=== PATIENT | male | born 1980 | race Caucasian/White ===

== ENCOUNTER 2024-03-29 14:34 | Emergency (ER) | payer OTHER, SELFPAY ==
[2024-03-29 14:55] VITALS: BP 128/79; PULSE 78; RESP 18; TEMP 37.3; O2SAT 98; BMI 25.1
[2024-03-29 15:56] LABS: Appearance Urine Cloudy (Clear); Bilirubin Urine Negative (Negative); Blood Urine 2+ (Negative); Color Urine Yellow (Yellow); Glucose Urine Negative (Negative); Ketones Urine Negative (Negative); Leukocyte Esterase Urine Negative (Negative); Nitrite Urine Negative (Negative); Protein Urine Negative (Negative); Specific Gravity Urine 1.015 (1.000-1.030); Urobilinogen Urine 0.2 (0.2-1.0); pH Urine 8.5 (5.0-8.5)
[2024-03-29 16:26] LABS: Bacteria Urine Moderate; Squamous Epithelial Cell Urine Few (None-Few)
--- NOTE | 2024-03-29 16:38 | CRLHL7_ITS ---
For Patients: As a result of the Century Cures Act, medical imaging exams and procedure reports are released immediately into your electronic medical record. You may view this report before your referring provider. If you have questions, please contact your health care provider. Indication: Left-sided back pain, hematuria Technique: Volumetric multidetector CT images of the abdomen and pelvis were without the administration of intravenous contrast. Comparison: CT abdomen and pelvis March 18, 2020 Findings: The lung bases are clear. The liver is normal in attenuation without intrahepatic biliary ductal dilatation. The gallbladder is unremarkable without evidence of radiopaque calculus. There is no significant common biliary ductal dilatation or abrupt cut off. The spleen is normal in attenuation and size. The stomach and duodenum are grossly unremarkable. The pancreas is normal in attenuation without significant atrophy. The adrenal glands are unremarkable. There is left-sided hydronephrosis with demonstration of a 5.7 millimeter calculus just at the ureteropelvic junction. No evidence of distal hydronephrosis or additional calculi. There is a mild amount of stool seen throughout the colon. There is mild distal colonic diverticulosis. The appendix is unremarkable. There is no significant mesenteric, retroperitoneal, or pelvic sidewall lymph nodes. The aorta is nonaneurysmal. There is no significant atherosclerotic disease appreciated. The solid pelvic viscera are grossly unremarkable. There is no free fluid or free air. There is a small fat containing umbilical hernia. The lumbar vertebral body heights are grossly maintained in satisfactory alignment without evidence of displaced fracture, lytic or blastic lesion. Impression: Left-sided hydronephrosis with demonstration of a 5.7 millimeter calculus in the proximal left ureter just at the ureteropelvic junction. Please note that all CT scans at this facility use dose modulation, iterative reconstruction, and/or weight-based dosing when appropriate to reduce radiation dose to as low as reasonably achievable. Dictated by Bebeto Bowers MD @ 03/29/2024 5:31:27 PM (Electronically Signed)
[2024-03-29 16:46] VITALS: BP 133/82; PULSE 74; RESP 16; O2SAT 99
--- NOTE | 2024-03-29 17:04 | ED_ITS ---
HPI - Back Pain/Injury General Date Seen: 03/29/24 Chief Complaint: Back Injury/Pain Stated Complaint: Upper L back pain Time Seen by Provider: 03/29/24 16:45 Source: patient Mode of arrival: ambulatory Limitations: no limitations History of Present Illness HPI Narrative: Patient is a 43-year-old male presenting to the emergency department for left flank pain. He states the pain started around 11:00 and occurred suddenly. States it was a dull pain to his left upper flank. Pain is was 6/10 in nature but states his fully resolved about 45 minutes prior them to me seen him and his ED room. States when he is having the symptoms it made him leave work he was nauseated. Is having some mild lightheadedness at the time but denies chest pain, shortness of breath, abdominal pain, diarrhea, constipation, hematuria, dysuria. Does state a few weeks ago his urine appeared brown in color but that resolved. States he has had kidney stones before but his previous 1 was 4 years ago and is says was excruciating pain. Does not remember any injuries to his back or any recent heavy lifting. States the pain started suddenly while at work. No other concerns noted. Related Data Home Medications ?Medication ?Instructions ?Recorded ?Confirmed sertraline 50 mg tablet 50 mg PO DAILY 07/03/23 03/29/24 Previous Rx's ?Medication ?Instructions ?Recorded tamsulosin 0.4 mg capsule 0.4 mg PO DAILY #20 caps 03/29/24 Allergies Allergy/AdvReac Type Severity Reaction Status Date / Time No Known Drug Allergies Allergy Unverified 07/18/23 08:50 Review of Systems Status of ROS: Reports: 10 or more systems reviewed and unremarkable except as noted in History and below [facility] Surgical History H/O sinus surgery ?Z98.890 - Other specified postprocedural states (ICD-10) S/P hernia repair ?Z98.890 - Other specified postprocedural states (ICD-10) ?Z87.19 - Personal history of other diseases of the digestive system (ICD-10) Social History Smoking Status: Never smoker Do you use any of these nicotine containing products: None How often do you have a drink containing alcohol: never How often do you have six or more drinks on one occasion: Never AUDIT-C Alcohol total score: 0 Non-prescribed substance use: denies use Exam Narrative: Exam Narrative: Const: Well-nourished, Well-developed, in no distress Eyes: PERRL, no conjunctival injection, and symmetrical lids HENT: Atraumatic external nose and ears. Moist mucous membranes. Neck: Symmetric, trachea midline, No thyromegaly. CVS: RRR, No murmurs or gallops. Peripheral pulses 2+ and equal in all extremities RESP: Unlabored respiratory effort. Clear to auscultation bilaterally. GI: Nontender/Nondistended, No rebound or guarding. Mild left CVA tenderness MSK:Extremities w/o deformity, Normal Active ROM Skin: Warm, Dry. No rashes or lesions. Neuro: Normal Muscle tone, No focal neurological deficits. Psych: Awake, Alert, & Oriented x3. Appropriate mood and affect. Const: Vital Signs, click to edit/add: Vital Signs - 24 hr 03/29/24 14:55 03/29/24 16:46 Temperature 99.2 F Pulse Rate [Pulse Oximeter] 78 74 Respiratory Rate 18 16 [facility] 128/79 133/82 Pulse Oximetry 98 99 Oxygen Delivery Me thod Room Air Room Air Course Vital Signs Vital signs: Initial Vital Signs Temperature 99.2 F 03/29/24 14:55 Temperature Source Temporal Artery Scan 03/29/24 14:55 Pulse Rate 78 03/29/24 14:55 Respiratory Rate 18 03/29/24 14:55 Blood Pressure 128/79 03/29/24 14:55 Blood Pressure Mean 95 03/29/24 14:55 Blood Pressure Position Sitting 03/29/24 14:55 Pulse Oximetry 98 03/29/24 14:55 Oxygen Delivery Method Room Air 03/29/24 14:55 Vital Signs Temperature 99.2 F 03/29/24 14:55 Pulse Rate 78 03/29/24 14:55 Respiratory Rate 18 03/29/24 14:55 Blood Pressure 128/79 03/29/24 14:55 Pulse Oximetry 98 03/29/24 14:55 Oxygen Delivery Method Room Air 03/29/24 14:55 Temperature 99.2 F 03/29/24 14:55 Pulse Rate 74 03/29/24 16:46 Respiratory Rate 16 03/29/24 16:46 Blood Pressure 133/82 03/29/24 16:46 Pulse Oximetry 99 03/29/24 16:46 Oxygen Delivery Method Room Air 03/29/24 16:46 Medications Administered Medications: Generic Name Dose Route Start Last Admin Trade Name Christie PRN Reason Stop Dose Admin Tamsulosin HCl 0.4 mg 03/30/24 09:00 03/29/24 19:54 Tamsulosin Hcl 0.4 Mg Capsule PO 0.4 mg DAILY RAMOS Administration MDM - Back Pain/Injury MDM Narrative Medical decision making narrative: Patient's if 43 a male presenting for left flank pain. Currently asymptomatic. Based on his history and concern for kidney stone so I will order a CT scan. Will also do some basic lab work and a urinalysis. Urinalysis does show blood in the urine. I am not sure why he had discolored urine a couple weeks ago but seems to have fully resolved at this time. I am not concerned for your like aneurysm causing the symptoms considering his otherwise stable appearance in low risk factors. Could also be musculoskeletal in nature. CT scan was done showing a left-sided hydronephrosis and 5.7 mm stone consistent with his symptoms. CBC and CMP were ordered. CBC within normal limits. CMP was greatly delayed due to lab error but eventually results returned showing normal kidney function no other abnormalities. He is asymptomatic here in the emergency department this time. I informed to follow-up with a urologist which he states he has seen in the past for previous kidney stone. States he will call himself. No other concerns noted. Patient will be discharged at this time with Toradol and Zofran through [facility] and tamsulosin to his pharmacy. Junaid soria is agreeable to this plan Lab Data Labs: Lab Results 03/29/24 03/29/24 03/29/24 Range/Units 15:50 17:59 18:09 WBC Cancelled 11.17 H Corrected WBC Cancelled RBC Cancelled 5.07 Hgb Cancelled 15.3 Hct Cancelled 45.8 MCV Cancelled 90 MCH Cancelled 30 MCHC Cancelled 33 RDW Coeff of Len Cancelled 11.8 Plt Count Cancelled 288 Neut % (Auto) Cancelled 86.3 H Lymph % (Auto) Cancelled 8.8 L [place] % (Auto) Cancelled 4.4 Eos % (Auto) Cancelled 0.2 Baso % (Auto) Cancelled 0.2 Neut # (Auto) Cancelled 9.60 H Lymph # (Auto) Cancelled 1.00 [place] # (Auto) Cancelled 0.50 Eos # (Auto) Cancelled 0.00 Baso # (Auto) Cancelled 0.00 Abs Immat Gran (auto) Cancelled 0.00 Imm/Tot Granulo (auto) Cancelled 0.1 Sodium Cancelled 139 Potassium Cancelled 3.8 Chloride Cancelled 105 Carbon Dioxide Cancelled 23 Anion Gap Cancelled 11 BUN Cancelled 16 Creatinine Cancelled 1.0 Estimated Creat Clear Cancelled 92.15 Estimated GFR Cancelled 96 Glucose Cancelled 101 Calcium Cancelled 9.9 Total Bilirubin Cancelled 1.0 AST Cancelled 34 ALT Cancelled 20 Alkaline Phosphatase Cancelled 76 Total Protein Cancelled 8.5 H Albumin Cancelled 5.1 H Urine Color Yellow (Yellow) Urine Appearance Cloudy A (Clear) Urine pH 8.5 (5.0-8.5) Ur Specific [place] 1.015 (1.000-1.030) Urine Protein Negative (Negative) Urine Glucose (UA) Negative (Negative) Urine Ketones Negative (Negative) Urine Blood 2+ A (Negative) Urine Nitrite Negative (Negative) Urine Bilirubin Negative (Negative) Urine Urobilinogen 0.2 (0.2-1.0) Ur Leukocyte Esterase Negative (Negative) Urine RBC 2-5 A (0-2) Urine WBC 2-5 (0-5) Ur Squamous Epith Cells Few (None-Few) Urine Bacteria Moderate A (None) Imaging Data CT scan abdomen and pelvis: Attestation: I have reviewed the pertinent imaging results. Radiologist's impression: Left-sided hydronephrosis with demonstration of a 5.7 millimeter calculus in the proximal left ureter just at the ureteropelvic junction. Please note that all CT scans at this facility use dose modulation, iterative reconstruction, and/or weight-based dosing when appropriate to reduce radiation dose to as low as reasonably achievable. Dictated by Bebeto Bowers MD @ 03/29/2024 5:31:27 PM Discharge Plan Discharge Clinical Impression: Kidney stone on left side Patient Disposition: Home, Self-Care Condition: Stable Instructions: Kidney Stones (ED) Additional Instructions: You have a kidney stone that may not be able to pass on its own due to his size. I recommend following up with a urologist. Take tamsulosin until you passed the stone. Use Toradol for pain. When using Toradol do not use other NSAIDs as they are the same class of drugs. I also gave you Zofran in case you get na useated. Prescriptions: New tamsulosin 0.4 mg capsule 0.4 mg PO DAILY Qty: 20 1RF No Action sertraline 50 mg tablet 50 mg PO DAILY Follow Up/Referrals: Sofya Calabrese MD [Primary Care Provider] - Stand Alone Forms: [facility] Info Instructions
[2024-03-29 19:02] LABS: Basophils Percent Auto 0.2 % (0.0-3.0); Eosinophils Percent Auto 0.2 % (0.0-7.0); Hematocrit 45.8 % (37.0-53.0); Hemoglobin* 15.3 gm/dL (13.5-17.5); Immature Granulocytes Pct Auto 0.1 %; Lymphocytes Percent Auto 8.8 % (20-44); Mean Corpuscular HGB Conc 33 gm/dL (32-36); Mean Corpuscular Hemoglobin 30 pg (26-34); Mean Corpuscular Volume 90 fL (80-100); Monocytes Percent Auto 4.4 % (0.0-11.0); Neutrophils Percent Auto 86.3 % (42.0-72.0); Platelet Count* 288 K/uL (140-440); RDW Coefficient of Variation % 11.8 % (11.5-15.5); Red Blood Count 5.07 m/uL (4.30-5.90); Slide Review Reflex No; White Blood Count* 11.17 K/uL (4.50-11.00)
[2024-03-29] MEDS: TAMSULOSIN HCL 0.4 MG CAPSULE PO (19:54)
[2024-03-29 20:03] LABS: Albumin* 5.1 g/dL (3.3-5.0); Chloride* 105 mmol/L (96-114)
[2024-03-29 20:04] LABS: Potassium* 3.8 mmol/L (3.6-5.1); Sodium* 139 mmol/L (135-149)
[2024-03-29 20:06] LABS: Alanine Aminotransferase* 20 U/L (4-50); Alkaline Phosphatase* 76 U/L (40-150); Anion Gap 11 mEq/L (7-15); Aspartate Amino Transferase* 34 U/L (12-35); Blood Urea Nitrogen* 16 mg/dL (5-24); Carbon Dioxide* 23 mmol/L (20-32); Est. Creatinine Clearance* 92.15; Estimated Glomerular Filt Rate 96 ml/min; Glucose* 101 mg/dL (60-115); Total Protein* 8.5 g/dL (6.0-8.3)
[2024-03-29 20:07] LABS: Calcium* 9.9 mg/dL (8.4-10.6)
== END 2024-03-29 20:30 | disposition home or self-care (01) ==
PROVIDERS: Emergency Provider Student in an Organized Health Care Education/Training Program; PCP Family Medicine
DX: N20.0 Calculus of kidney (principal)
CPT/HCPCS: 36415; 74176; 80053; 81001; 85025; 87086; 99283; 99284; A9270

== ENCOUNTER 2024-12-24 14:49 | Outpatient (CLI) | payer OTHER, SELFPAY ==
--- NOTE | 2024-12-24 15:00 | CRLHL7_ITS ---
For Patients: As a result of the Century Cures Act, medical imaging exams and procedure reports are released immediately into your electronic medical record. You may view this report before your referring provider. If you have questions, please contact your health care provider. CLINICAL HISTORY: Follow-up left hydronephrosis COMPARISON: CT 08/18/2024 TECHNIQUE: James scale and color Doppler images were acquired of the kidneys and urinary bladder. FINDINGS: Resolution of the previously noted left-sided hydronephrosis. Punctate stone right kidney lower pole measures 3 millimeters. The right kidney measures 10.9cm in length and the left kidney measures 11.2cm in length. The renal cortex appears of normal thickness. The urinary bladder appears normal. Color Doppler images reveal a normal appearance of both ureteral jets. There is no evidence of bladder calculi or diverticula. Prevoid bladder volume 86 cc. Postvoid bladder volume 0 cc. IMPRESSION: Resolution of the previously noted left-sided hydronephrosis. Punctate 3 millimeter nonobstructing stone lower pole right kidney. Dictated by Martir Flores MD @ 12/24/2024 4:14:37 PM (Electronically Signed)
--- OUTSIDE RECORDS SUMMARY | 2024-12-25 00:31 | XMS_ITS | Clinical Summary ---
Author Organization [facility] Address [address] [place] [address] Care Team Providers Care Senior Investment Manager Name Role Phone Sofya Calabrese MD Primary Care Provider Allergies Active Allergy Reactions Criticality Noted Date Comments Cats (Fur, Dander, Saliva) *Unknown Dog Dander *Unknown 09/21/2020 Pollen Extracts *Unknown 09/21/2020 Tree And Shrub Pollen *Unknown 09/21/2020 Medications fluticasone (50 mcg per actuation) nasal solution (FLONASE) Inhale 2 Sprays into both nostrils once daily. 1 Bottle 02/28/2020 Active LORazepam (ATIVAN) 0.5 mg tabIndications: Anxiety,Insomni a, idiopathic Take 1 Tablet (0.5 mg) by mouth every 6 hours if needed for Anxiety. 10 Tablet 07/09/2023 Active sertraline (ZOLOFT) 25 mg tabletIndicatio ns:Anxiety Take 1 Tablet (25 mg) by mouth once daily in the morning. 100 Tablet 3 07/26/2024 Active tamsulosin (Flomax) 0.4 mg capsuleIndicati ons:Left ureteral stone Take 1 Capsule (0.4 mg) by mouth once daily after a meal. 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 Kessler Dysplastic nevi 05/10/2022 Overview (05/10/2022): 05/08/22: Back; Junctional nevus with severe atypia - excision scheduled 06/12/22 [place] Allergic rhinitis 11/16/2020 Irritable bowel syndrome with constipation 01/28 Myopia 06/17/2013 Nuclear cataract, nonsenile 06/17/2013 Amblyopia 04/15/2013 Overview (01/24/2021): Epic Allergic rhinitis due to animal dander 1 Nasal polyposis 12/06/2010 Overview (01/24/2021): Overview: Wheezing KYLAH (obstructive sleep apnea) Immunizations Immunization Administration Dates Next Due Anthrax Vaccine 09/04/2003,11/20/2002,10/21/2002 COVID-19 vaccine ([employer] 30mcg/0.3mL) 12YO+ BIVALENT PF, MDV 05/06/2022 COVID-19 vaccine ([employer] 30mcg/0.3mL) PF, MDV 06/11/2021 Hepatitis A (Adult) 09/04/2003,09/30/2002 Hepatitis B (Adult) 05/03/2006,09/04/2003,2002 Inactivated Polio Vaccine 02/03/2002 Influenza Virus, Unspecified 05/01/2018,06/10/20 03 Influenza, IIV3 (Age >=3 years) 03/26/2012 Influenza, IIV4 05/06/2022,,06/12/2020,03/09,03/11/2014,04/26/2013 Influenza, IIV4 (=>6mos) MDV 04/26/2013 MMR, Unspecified 02/03/2002 Meningococcal Vaccine (Menomune) 02/03/2002 Smallpox (Vaccinia) Live [id number] 10/11/2002 Td (Age >=7 Years) 02/03/2002 Tdap 01/06/2017,10/28/2011 Typhoid, Unspecified 09/30/2002 Social History Tobacco Use Types Packs/Day Years Used Date Smoking Tobacco: Former Cigarettes Q uit: 2008 Smokeless Tobacco: Never Tobacco Cessation:Counseling Given: Yes Alcohol Use Standard Drinks/Week Comments Not Currently 0 (1 standard drink = 0.6 oz pur e alcohol) socially on occ PHQ-2 Answer Date Recorded PHQ-2 TOTAL SCORE 0 07/26/2024 Social Connections Answer Date Recorded Do you often feel lonely or isolated from those around you? 0 05/31/2024 Financial Resource Strain Answer Date R ecorded Difficulty of Paying Living Expenses 3 05/31/2024 Difficulty of Paying Living Expenses Not on file 05/31/2024 Food Insecurity Answer Date Recorded Do you worry your food will run out before you are able to buy more? 1 05/31/2024 Transportation Needs Answer Date Record ed Does lack of transportation keep you from medica l appointments? 1 05/31/2024 Does lack of transportation keep you from work, meetings or getting things that you need? 1 05/31/2024 Housing Stability Answer Date Recorded What is your housing situation today? 1 05/31/2024 Interpersonal Safety Answer Date Record ed Are you being hit, kicked, p ushed or yelled at (see row info)? No 08/18/2024 Interpersonal Safety Abuse 12 - 18 Not on file 08/18/2024 Interpersonal Safety Ambulatory Vulnerability No t on file 08/18/2024 Utilities Answer Date Recorded Do you have trouble paying f or utilities (for example, heat, electricity, water, phone)? 1 05/31/2024 Sex and Gender Information Value Date Recorded Sex Assigned at Not on file Legal Sex Male 12:15 PM CDT Gender Identity Not on file Sexual Orientation Not on file Obstetrics History Last Filed Vital Signs Vital Sign Reading Time Taken Comments Blood Pressure 132/77 08/20/2024 7:07 AM DISTRICT CLAIMS MANAGER Pulse 76 08/20/2024 7:07 AM DISTRICT CLAIMS MANAGER Temperature 36.8 C (98.3 F) 08/20/2024 7:07 AM DISTRICT CLAIMS MANAGER Respiratory Rate 18 08/18/2024 11:44 AM DISTRICT CLAIMS MANAGER Oxygen Saturation 100% 08/20/2024 7:07 AM DISTRICT CLAIMS MANAGER Inhaled Oxygen Concentration - - Weight 78.2 kg (172 lb 6.4 oz) 08/20/2024 7:07 A M DISTRICT CLAIMS MANAGER Height 172.7 cm (5' 8) 08/20/2024 7:07 AM DISTRICT CLAIMS MANAGER Body Mass Index 26.21 08/20/2024 7:07 AM DISTRICT CLAIMS MANAGER Plan of Treatment Health Maintenance Due Date Last Done Comments HIV for age 15-65 1995 Hepatitis C screening for age 18-79 1998 COVID-19 vaccine series ( season) 2024 05/06/2022, 06/11/2021, 10/27/2020, Additional history exists Influenza Vaccine (Season Ended) 2025 05/06/2022, 05/02/2021, 06/12/2020, Additional history exists Depression screening for age 12+ 07/26/2025 07/26/2024, 05/08/2022, 05/06/2022, Additional history exists Lipids for age 35-44 08/11/2025 08/11/2020 BMI (ht and wt on same day) for age 18+ 08/20/2025 08/20/2024, 05/06/2022, 06/11/2021, Additional history exists Tetanus booster 01/06/2027 01/06/2017, 09/30, 02/03/2002 Hepatitis B series for 19+ Completed 05/03, 09/04/2003, 09/30/2002 Tdap Completed 01/06/2017, 10/28/2011 Pneumococcal series for age 6-49 Aged Out No longer eligible based on patient's age to complete this topic Procedures Procedure Name Priority Date/Time Associated Diagnosis Comments LIPID PANEL W REFLEX MEASURED LDL Routine 08/11/2020 8:45 AM DISTRICT CLAIMS MANAGER Screening for lipid disorders from Last 3 Months or Most Recently Relevant to Health Maintenance Results * (ABNORMAL) LIPID PANEL W REFLEX MEASURED LDL (08/11/2020 8:45 AM DISTRICT CLAIMS MANAGER) CHOLESTEROL,TOTAL 167 100 - 199 mg/dL 08/11/2020 3:11 PM DISTRICT CLAIMS MANAGER [facility] TRIGLYCERIDES 159(H) <150 mg/dL 08/11/2020 3:11 PM DISTRICT CLAIMS MANAGER [facility] HDL CHOLESTEROL 42 >40 mg/dL 02/12/202 1 3:11 PM DISTRICT CLAIMS MANAGER [facility] NON-HDL CHOLESTEROL 125 <145 mg/dl 08/11/2020 3:11 PM DISTRICT CLAIMS MANAGER [facility] CHOL/HDL RATIO 3.98 <4.50 08/11/2020 3:11 PM DISTRICT CLAIMS MANAGER [facility] LDL CHOLESTEROL 93 <=130 mg/dL 08/11/2020 3:11 PM DISTRICT CLAIMS MANAGER [facility] PROVIDER ORDERED STATUS RANDOM 08/11/2020 3:11 PM DISTRICT CLAIMS MANAGER [facility] Blood BLOOD SPECIMEN / Unknown Venipuncture / Unknown 08/11/2020 8:45 AM DISTRICT CLAIMS MANAGER 08/11/2020 8:46 AM DISTRICT CLAIMS MANAGER us Fiona HAZEL CHEMISTRY Final [facility]u lt [facility] [address] [place] [address], from Last 3 Months or Most Recently Relevant to Health Maintenance Insurance [place] [id number] [place] [id number] Care Teams Senior Investment Manager Relationship Specialty Start Date End Date Sofya Calabrese MD [address] [place] [address] [address] PCP - General Family Practice 02/21/20
--- OUTSIDE RECORDS SUMMARY | 2024-12-25 00:31 | XMS_ITS | Encounter Summary ---
Author Organization [facility] Address [address] [place] [address] Care Team Providers Care Rubber Goods Tester Water Name Role Phone Alvarado Gilbert MD Primary Care Provider [phone] Encounter Details Date Type Department Care Team (Late st Contact Info) Description 03/11/2014 Correspondence None No Primary/Referring, Phy MEDICAL EQUIPMENT PROOF OF DELIVERY Social History Tobacco Use Types Packs/Day Years Used Date Smoking Tobacco: Former Smokeless Tobacco: Never Alcohol Use Standard Drinks/Week Comments Yes 3.3 (1 standard drink = 0.6 oz p ure alcohol) social Sex and Gender Information Value Date Recorded Sex Assigned at Not on file Legal Sex Male 11:02 AM CDT Gender Identity Not on file Sexual Orientation Not on file 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
--- OUTSIDE RECORDS SUMMARY | 2024-12-25 00:31 | XMS_ITS | Encounter Summary ---
Author Organization [facility] Address [address] [place] [address] Care Team Providers Care Medical Manager Name Role Phone Alvarado Gilbert MD Primary Care Provider [phone] Encounter Details Date Type Department Care Team (Latest Contact Info) Description 05/20/2013 Consent for Procedure/Treatme nt [facility] [address] [facility] 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
--- OUTSIDE RECORDS SUMMARY | 2024-12-25 00:31 | XMS_ITS | Clinical Summary ---
Author Organization Formerly [facility] Address [address] [place] [address] Care Team Providers Care Disc Inspector Name Role Phone Alvarado Gilbert MD Primary Care Provider [phone] Source Comments You are receiving this document as you are listed as the primary care provider,follow-up provider, or the patient has been referred to you for consultation.This is in compliance with the Medicare and[facility] Cent[facility] EHR Incentive Program,which states Providers who transition their patient to another setting of careor provider of care or refers their patient to another provider of care shouldprovide summary care record for each transition of care or referral. [facility] Allergies Active Allergy Reactions Criticality Noted Date Comments Cats Claw (Uncaria Tomentosa) Other, see comments 04/29/2013 Cats, dogs, birds, pollen Itchy eyes and congestion Medications Psyllium (METAMUCIL OR) Activ e fluticasone (AKA FLONASE) 50 MCG/ACT nasal solutionIndicat ions:Allergic rhinitis Apply or instill 2 Sprays into both nostrils daily. 48 g 3 5 Active Multiple Vitamins-Iron (MULTIVITAMINS- IRON) tablet Take 1 Tablet by mouth. Active methylPREDNISol one (MEDROL 21 TABLET DOSEPACK) 4 MG tabletIndicatio ns:Numbness of left foot Follow package directions 21 Tablet 0 Active Additional Information Patient not taking.Reported on 01/12/2020 LORazepam (ATIVAN) 0.5 MG tablet Take 0.5 mg by mouth. 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 Name: RAFA VAZQUEZ Acc #: [id number] Pt. 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 Allergic rhinitis 12/06/2010 Nasal polyposis 12/06/2010 Overview (03/04/2019): Overview: Immunizations Immunization Administration Dates Next Due Fluzone Qiv Multidose Vial 0.25 (6-35 Mos) 04/26 Influenza IIV4 (Quadrivalent) 0.5mL (68832) 02/28,03/11/2014,04/26/2013 Influenza, Unspecified Formulation 05/01/2018 Tdap 01/06/2017,10/28/2011 Family History Medical History Relation Name Comments Diabetes, Type II Mother Hypertension Mother Inflammatory Bowel Disease Mother Inflammatory Bowel Disease Brother 2 C rohns disease Diabetes, Type II Maternal Aunt Diabetes, Type II Maternal Grandfather Amblyopia/Strabismus Negative Family History Cataract Negative Family History Coronary Artery Disease Negative Family History Glaucoma Negative Family History Kidney Disorder Negative Family History Relation Name Status Comments Father Alive Mother Alive Brother 1 Alive Brother 2 Maternal Aunt Maternal Grandfather Alive Maternal Grandmother Alive Paternal Grandfather Paternal Grandmother Sister Alive Social History Tobacco Use Types Packs/Day Years Used Date Smoking Tobacco: Former Cigarettes 0.5 13 0 02/28/1995 - 02/29/2008 Smokeless Tobacco: Never Alcohol Use Standard Drinks/Week Comments Yes 0 (1 standard drink = 0.6 oz pur e alcohol) 6-8 a week PHQ-2 Answer Date Recorded PHQ-2 Score 1 03/09/2019 Sex and Gender Information Value Date Recorded Sex Assigned at Not on file Legal Sex Male 11:02 AM CDT Gender Identity Not on file Sexual Orientation Not on file 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 on file Not on file Not on file Last Filed Vital Signs Vital Sign Reading Time Taken Comments Blood Pressure 112/85 02/02/2020 2:47 PM CDT Pulse 84 02/02/2020 2:47 PM CDT Temperature 36.8 C (98.3 F) 01/12/2020 2:24 PM CDT Respiratory Rate 16 06/21/2019 10:55 AM EXERCISE INSTRUCTOR Oxygen Saturation 100% 06/03/2019 5:23 PM EXERCISE INSTRUCTOR Inhaled Oxygen Concentration - - Weight 77.6 kg (171 lb) 02/02/2020 2:47 PM CDT Height 172.7 cm (5' 8) 06/03/2019 5:23 PM EXERCISE INSTRUCTOR Body Mass Index 26 06/03/2019 5:23 PM EXERCISE INSTRUCTOR Plan of Treatment Health Maintenance Due Date Last Done Comments Hep C Screening (Preventive Services) 1980 Adult Preventive Visit 05/15/2020 8, 01/16/2017, 04/23/2013 Cholesterol 05/15/2023 05/15/2018, 06/08/2013 COVID-19 Vaccine ( season) 2024 05/06/2022, 06/11/2021, 10/27/2020, Additional history exists Influenza Vaccine (Season Ended) 2025 05/06/2022, 05/02/2021, 06/12/2020, Additional history exists DTaP/Tdap/Td Vaccine (3 - Tdap) 01/06/2027 01/06/2017, 10/28/2011 Zoster/Shingles Vaccine (1 of 2) 2030 IPV (Polio) Vaccine Aged Out 02/03/2002 No longe r eligible based on patient's age to complete this topic MCV4 Vaccine Aged Out 02/03/2002 No longer eligi ble based on patient's age to complete this topic HepA Vaccine Aged Out 09/04/2003, 09/30/2002 No lo nger eligible based on patient's age to complete this topic HIV Screening (Preventive Services) Completed 11/28/2014, 06/08/2013 HPV Vaccine Aged Out No longer eligi ble based on patient's age to complete this topic Hib Vaccine Aged Out No longer eligi ble based on patient's age to complete this topic Meningococcal B Vaccine Aged Out No l onger eligible based on patient's age to complete this topic Pneumococcal Vaccine Aged Out No long er eligible based on patient's age to complete this topic Procedures Procedure Name Priority Date/Time Associated Diagnosis Comments LIPID PANEL & DIRECT LDL (IF NEEDED) Routine 05/15/2018 9:52 AM EXERCISE INSTRUCTOR Preventative health care HIV ANTIBODY Routine 11/28/2014 2:23 PM CDT Screen for STD (sexually transmitted disease) from Last 3 Months or Most Recently Relevant to Health Maintenance Results * (ABNORMAL) Lipid Panel and Direct LDL(If Needed) (05/15/2018 9:52 AM EXERCISE INSTRUCTOR) Hours Fasting 12 hours [facility] Cholesterol 178 0 - 199 mg/dl [facility] Triglyceride 159(H) 0 - 149 mg/dl [facility] HDL 45 >40 mg/dl [facility] LDL, Calc. 101 0 - 129 mg/dl [facility] Non HDL Chol, Calc 133 0 - 159 mg/dl [facility] 05/15/2018 9:52 AM EXERCISE INSTRUCTOR 05/15/2018 9:53 AM EXERCISE INSTRUCTOR Narrative [facility] - 05/15/2018 4:18 PM EXERCISE INSTRUCTOR Performed at [facility], [address] [place] [id number] [place] Alvarado Gilbert MD LAB_1 Final Result [facility] [phone] * HIV 1/2 Antibody (11/28/2014 2:23 PM CDT) HIV 1/2 Antibody Negative (Non Reactive) [facility] Comment: HIV Antibody testing may be falsely negative during the window period. If the patient has had recent exposure (within the past four weeks), consider contacting Infectious Diseases for clarification. 11/28/2014 2:23 PM CDT 11/28/2014 2:27 PM CDT Narrative [facility] - 11/29/2014 1:53 PM CDT Performed at [facility], [address] [place] [address] us Adriel Diez MD LAB_1 Final Res [facility] [phone] from Last 3 Months or Most Recently Relevant to Health Maintenance Insurance [facility] Care Teams Disc Inspector Relationship Specialty Start Date End Date Alvarado Gilbert MD [address] [address] PCP - General Family Practice 10/08/13
--- OUTSIDE RECORDS SUMMARY | 2024-12-25 00:31 | XMS_ITS | Clinical Summary ---
Author Organization [facility] Address [address] [facility] [place] [address] Care Team Providers Care Cable Swager Name Role Phone No Ref-Primary, Physician Primary Care Provider Allergies Active Allergy Reactions Criticality Noted Date Comments Cats 09/21/2020 Cats Claw (Uncaria Tomentosa) 04/29/2013 *Cats, dogs, birds, pollen Itchy eyes and congestion Dog Epithelium (Canis Lupus Familiaris) 09/21/2020 Dust Mites 11/21/2010 Mold 09/07/2024 Pollen Extract 09/21/2020 Trees 09/21/2020 Medications fluticasone (FLONASE) 50 MCG/ACT nasal spray [place] 1 spray into both nostrils daily. Active LORazepam (ATIVAN) 0.5 MG tablet Take 0.5 mg by mouth every 6 hours as needed for anxiety. Active sertraline (ZOLOFT) 25 MG tablet Take 25 mg by mouth daily. Active tamsulosin (FLOMAX) 0.4 MG capsule Take 0.4 mg by mouth daily. Active acetaminophen (TYLENOL) 500 MG tablet Take 500 mg by mouth every 6 hours as needed for mild pain. Active HYDROcodone-acetami nophen (NORCO) 5-325 MG tabletIndications:U reteral stone with hydronephrosis Take 1-2 tablets by mouth every 4 hours as needed for moderate to severe pain. 15 tablet 5 Active ondansetron (ZOFRAN ODT) 4 MG ODT tabIndications:Uret eral stone with hydronephrosis Take 1 tablet (4 mg) by mouth every 8 hours as needed for nausea. 4 tablet 5 Active Social History Tobacco Use Types Packs/Day Years Used Date Smoking Tobacco: Former Cigarettes Q uit: 2008 Smokeless Tobacco: Never Tobacco Cessation:Counseling Given: Not Answered Alcohol Use Standard Drinks/Week Comments Not Currently 0 (1 standard drink = 0.6 oz pur e alcohol) Interpersonal Safety Answer Date Record ed Do you feel physically and e motionally safe where you currently live? Yes 09/13/2024 Within the past 12 months, h ave you been hit, slapped, kicked or otherwise physically hurt by someone? No 09/13/2024 Within the past 12 months, h ave you been humiliated or emotionally abused in other ways by your partner or ex-partner? 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 Gender Identity Not on file Sexual Orientation Not on file Last Filed Vital Signs Vital Sign Reading Time Taken Comments Blood Pressure 124/83 09/13/2024 10:40 AM CDT Pulse 71 09/13/2024 10:00 AM CDT Temperature 36 C (96.8 F) 09/13/2024 10:00 AM CDT Respiratory Rate 16 09/13/2024 10:4 0 AM CDT Oxygen Saturation 100% 09/13/2024 10: 40 AM CDT Inhaled Oxygen Concentration - - Weight 76.6 kg (168 lb 14.4 oz) 09/13/2024 6:23 AM CDT Height 172.7 cm (5' 8) 09/13/2024 6:23 AM CDT Body Mass Index 25.68 09/13/2024 6:23 AM CDT Plan of Treatment Health Maintenance Due Date Last Done Comments ADVANCE CARE PLANNING 1980 ANNUAL REVIEW OF HM ORDERS 1980 DIABETES SCREENING 1980 YEARLY PREVENTIVE VISIT 04/23/2014 04/23/2013, 10/27 LIPID 2020 COVID-19 VACCINE ( season) 2024 05/06/2022, 06/11/2021, 10/27/2020, Additional history exists PHQ-2 (once per calendar year) 2024 INFLUENZA VACCINE (Season Ended) 2025 05/06/2022, 05/02/2021, 06/12/2020, Additional history exists DTAP/TDAP/TD VACCINE (4 - Td or Tdap) 01/06/2027 01/06/2017, 10/28/2011, 02/03/2002 ZOSTER VACCINE (1 of 2) 2030 MENINGITIS VACCINE Aged Out 02/03/2002 No longer eligible based on patient's age to complete this topic HEPATITIS B VACCINE Completed 05/03/2006, 09/04/2003, 09/30/2002 HEPATITIS C SCREENING Completed 07/31/2012 HIV SCREENING Completed 11/28/2014, 07/31/2012 HPV VACCINE Aged Out No longer eligi ble based on patient's age to complete this topic PNEUMOCOCCAL VACCINE: PEDIATRICS (0 to 5 YEARS) AND AT-RISK PATIENTS (6 to 49 YEARS) Aged Out No longer eligible based on patient's age to complete this topic Goals Goal Patient Goal Type Associated Problems Recent Progress Patient-Stated? Author MYC ECC SURG ENROLL Care Plan MyC ECC SURG ENROLL No [employer] Implanted Type Area Community Service Officer Coordinator Device Identifier Shelf Expiration Date Model / Serial / Lot Stent Ureteral Polaris Ultra [id number] - [id number] Implanted:Qty : 1 on 09/13/2024 by Nathaniel Krause MD at [facility] Stent Left: Urethra [employer] [id number] 07/23/2027 [id number] Explanted Type Area Community Service Officer Coordinator Device Identifier Shelf Expiration Date Model / Serial / Lot Uterteral Stent Explanted:Qty: 1 on 09/13/2024 by Nathaniel Krause MD at [facility] Stent Left: Urethra Additional Health Concerns Active Problems Noted Date Diagnosed Date MyC ECC SURG ENROLL 09/07/[address] [place] [address] [facility] Cable Swager Relationship Specialty Start Date End Date No Ref-Primary, Physician PCP - General 09/06/24
--- OUTSIDE RECORDS SUMMARY | 2024-12-25 00:31 | XMS_ITS | Data Portability ---
Author Organization [place] [facility] Address [address] [place] [address] Care Team Providers Care Pick Up Man Name Role Phone JOSE DUMONT Primary Care Provider Assessment Encounter Date Assessment Date Assessment LastModified by Organization Details LastModified Time 03/22/2020 03/22/2020 39 Y/O MALE, LEFT FLANK PAIN, 6MM LEFT PROXIMAL STONE. PAIN HAS IMPROVED. KUB STONE NOW IN KIDNEY. DISCUSSED OPTIONS. PLAN HE WILL DECIDE ON LEFT ESWL IN NEAR FUTURE. Not available 03/22/2020 16:45:50 Plan of Treatment Reminders Order Date Submit Date Provider Last Modified By Organization Details Last Modified Time Details Appointments None recorded. Lab urinalysis , dipstick 2019 020 [email or web address] Not available 0 16:00:10 Referral None recorded. Procedures None recorded. Surgeries None recorded. Imaging US, renal - Please call pt to schedule. Needed JOYCE. Thank you 2024 025 [facility], [address] [place], [address], 5 17:16:07 CT, abdomen + pelvis, w/o contrast - no prev 2024 025 [facility] , [place], [address], 5 17:55:55 Medication Orders None recorded. Patient TargetsNo targets recorded. Patient Instructions Encounter Date Encounter Id Patient Instructions Last Modified By Organization Details Last Modified Time 03/22/2020 [id number] ESWL DISCUSSED PROCEDURE Not available 03/22/2020 16:46:01 08/03/2024 [id number] Rafa and I suspect either a persistent (going on 4 months) left ureteral stone, a new stone, or something else contributing to both his pain / GH. We discussed GH - and the need for us to use cystoscopy to further investigate - pending the results of our work up. Discussed ESWL vs URS should the stone still be present - goals/risks/limit ations of both reviewed. CT scan, possible extraction. Not available 08/03/2024 16:40:22 10/12/2024 [id number] Stent removed today - renal US in 6 weeks, with me in 6-8 weeks for review, stone analysis, stone prevention talk. Discussed impacted stone risks, importance of follow up. Not available 10/12/2024 16:58:52 Reason for Referral None Reported. Results Created Date Observation Date Name Description Value Unit Range Abnormal Flag Note LastModifiedBy Organization Detail LastModifiedTime 03/22/20 20 03/22/2020 urina lysis , dipst ick Blood-Status Small Not Available [facility] [address], [place], [address], 03/22/2020 15:59:27 03/24/20 20 03/23/2020 XR, kidne y + urete r + bladd er No observ ation record ed. [email or web address] [facility] [address], [place], [address], 03/24/2020 15:37:39 08/05/19 25 08/05/2024 CT, abdom en + pelvi s, w/o contr ast EXAM: CT, ABDOME N + PELVIS , W/O CONTRA ST [facility]ATI [facility]: [facility] [place] DATE: 08/05/19 INDICA TION: Hydron ephros is with renal and ureter al calcul ous obstru ction COMPAR BLANK: None. TECHNI QUE: CT scan of the abdome n and pelvis was perfor med withou t IV contra st. Multip lanar reform ats were obtain ed. Dose reduct ion techni ques were used. CONTRA ST: None. FINDIN GS: LOWER CHEST: Normal . HEPATO BILIAR Y: Normal . PANCRE : Normal . SPLEEN : Normal . ADRENA L GLANDS : Normal . KIDNEY S/BLAD DENISSE: A 5 x 4 x 4 mm stone in the distal left ureter result s in mild hydrou reter and periur eteral fat strand ing withou t signif icant dilati on of the renal pelvis . No other stone on either side. No right ureter al stone or hydron ephros is. No suspic ious noncon trast renal lesion . Normal unenha nced bladde r. BOWEL: No obstru ction or inflam matory change . Normal append ix. Minima l coloni c divert iculos is. LYMPH NODES: No lympha denopa thy. VASCUL ATURE: No abdomi nal aortic aneury sm. PELVIC ORGANS : No suspic ious pelvic mass. Minisc ule ascite s is favore d reacti ve. MUSCUL OSKELE SUNNY: No aggres sive osseou s lesion . IMPRES SOPHIA: 1. A 5 mm obstru ctive stone in the distal left ureter result s in mild hydrou reter and periur eteral fat strand ing withou t signif icant hydron ephros is. This report was electr onical ly interp reted by: Nancy Huerta MD on 2024 at 16:53 [email or web address] [facility] [address] [facility] [address], [place], [address], 08/06/2024 16:55:14 12/25/19 25 12/24/2024 US, renal No observ ation record ed. [facility] [address], [place], [address], 12/24/2024 17:16:07 Result Notes Documentation Provider Name and Address Organization Details Recorded Time Ct, Abdomen + Pelvis, W/o Contrast : EXAM: CT, ABDOMEN + PELVIS, W/O CONTRAST LOCATION: [facility] [place] DATE: 08/05/2024 INDICATION: Hydronephrosis with renal and ureteral calculous obstruction COMPARISON: None. TECHNIQUE: CT scan of the abdomen and pelvis was performed without IV contrast. Multiplanar reformats were obtained. Dose reduction techniques were used. CONTRAST: None. FINDINGS: LOWER CHEST: Normal. HEPATOBILIARY: Normal. PANCREAS: Normal. SPLEEN: Normal. ADRENAL GLANDS: Normal. KIDNEYS/BLADDER: A 5 x 4 x 4 mm stone in the distal left ureter results in mild hydroureter and periureteral fat stranding without significant dilation of the renal pelvis. No other stone on either side. No right ureteral stone or hydronephrosis. No suspicious noncontrast renal lesion. Normal unenhanced bladder. BOWEL: No obstruction or inflammatory change. Normal appendix. Minimal colonic diverticulosis. LYMPH NODES: No lymphadenopathy. VASCULATURE: No abdominal aortic aneurysm. PELVIC ORGANS: No suspicious pelvic mass. Miniscule ascites is favored reactive. MUSCULOSKELETAL: No aggressive osseous lesion. IMPRESSION: 1. A 5 mm obstructive stone in the distal left ureter results in mild hydroureter and periureteral fat stranding without significant hydronephrosis. This report was electronically interpreted by: Taiwo Huerta MD on 08/05/2024 at 16:53 Nathaniel Krause MD [address] [place] [address],[address], [place], [address], [facility] 08/06/2024 16:55:14 Problems Name Problem SNOMED Code Status Onset Date Resolution Date Notes Provider Name and Address Organization Details Recorded Time Hydronephrosis due to calculus of kidney and ureter 213226414 Active 2024 Nathaniel live MD [address] [place] [address],[address] [place] [address], [phone], [facility] 5 16:38:39 Jason hematuria 583735009 Active 2024 Nathaniel live MD [address] [place] [address],[address] [place] [address], [phone], [facility] 5 16:39:01 Kidney stone 48723116 Active 2024 Nathaniel live MD [address] [place] [address],[address] [place] [address], [phone], [facility] 5 16:39:06 Ureteric stone 25574661 Active 2024 Nathaniel live MD [address] [place] [address],[address], [place], [address], [facility] 17:27:01 Problem Notes None recorded. Procedures Surgical History Date Name Laterality Status Provider Name and Address Organization Details Recorded Time 5 Keflex post Cysto completed Marianela Holguin [facility] 10/12/2024 15:46:03 5 ADIEL Stent Removal completed Nathaniel Krause MD [address] [place] [address],[address], [place], [address], [facility] 10/12/2024 16:57:31 5 CYSTOSCOPY, WITH URETEROSCOPY, WITH LITHOTRIPSY, WITH INSERTION OF URETERAL STENT (SURG) completed Laxmi Euceda [facility] 10/04/2024 16:46:16 Hernia Repair completed Jignesh marc MD [address] [place] [address],[address], [place], [address], [facility] 03/22/2020 15:58:43 Sinus Surgery completed Jignesh marc MD [address] [place] [address],[address], [place], [address], [facility] 03/22/2020 15:58:49 Imaging Results None recorded. Procedure Notes None recorded. Medical Equipment None Reported. Allergies No known drug allergies Medications Name Sig Start Date Stop Date Status Note LastModified by Organization Details LastModified Time hydrocodone 5 mg-acetamin ophen 325 mg tablet TAKE 1 TABLET BY MOUTH EVERY 6 HOURS active Not Available Not Available No t Available phenazopyri dine 200 mg tablet TAKE 1 TABLET BY MOUTH THREE TIMES DAILY NEEDED FOR URINARY PAIN active Not Available Not Available No t Available ondansetron 8 mg disintegrat ing tablet DISSOLVE 1 TABLET ON THE TONGUE EVERY 8 HOURS NEEDED FOR NAUSEA OR VOMITING 08/03 completed Not Available Not Available Not Available oxycodone-a cetaminophe n 5 mg-325 mg tablet TAKE 1 TABLET BY MOUTH EVERY 6 HOURS active Not Available Not Available No t Available lorazepam 0.5 mg tablet active Not Available Not Available Not Available tamsulosin 0.4 mg capsule TAKE 1 CAPSULE BY MOUTH EVERY DAY 2024 active Not Available Not Available Not Avai lable cephalexin 500 mg capsule TAKE 1 CAPSULE BY MOUTH EVERY 8 HOURS active Not Available Not Available No t Available sertraline 25 mg tablet active Not Available Not Available Not Available cephalexin 500 mg tablet Take 1 tablet every 8 hours by oral route. 2024 active Not Available Not Available Not Avai lable montelukast 10 mg tablet 08/03 completed Not Available Not Available Not Available Flonase Allergy Relief active Not Available Not Available Not Available Vitals Date Recorded Body height Body mass index (BMI) Body weight Provider Name and Address Organization Details Last Updated DateTime 08/03/2024 172.72 cm 25.8 kg/m2 [address] [facility] 08/03/2024 16:04:41 Date Recorded Body height Body mass index (BMI) Body weight Provider Name and Address Organization Details Last Updated DateTime 10/12/2024 172.72 cm 25.8 kg/m2 39946.7 g [facility] 10/12/2024 15:46:21 Date Recorded Body height Body mass index (BMI) Body weight Provider Name and Address Organization Details Last Updated DateTime 03/22/2020 172.72 cm 25.1 kg/m2 84212.74 g Elisa Acevedo [facility] 03/22/2020 15:50:44 Social History Question Answer Notes LastModified by Organizat ion Details LastModified Time Tobacco Smoking Status Former Smoker Jignesh eKller MD [address] [place] [address], [address], [facility] 03/22/2020 15:58:30 What Was The Date Of Your Most Recent Tobacco Screening? 10/12/2024 [email or web address] Information not available 10/12/2024 Sex: Male Functional Status None recorded. Mental Status None recorded. Family History Relationship Description Onset Age of this Age Resolved Age Notes LastModified by Organization Details LastModified Time Mother Family history of diabetes mellitus [email or web address] Not available 2019 15:58:09 Paternal Grandfather Family history of malignant neoplasm [email or web address] Not available 2019 15:58:26 Medical History Condition Response Sexually Transmitted Infection N Diabetes N Other N Bleeding Disorder N High Blood Pressure N Kidney Stones Y High Cholesterol N GERD/Acid Reflux N Heart Disease N Cancer N Lung Disease N Depression N Immunizations Vaccine Type Date Status Note Provider Nam e and Address Organization Details Recorded Time Influenza, split virus, quadrivalent, preservative 3 completed Marianela Osterbauer null, [facility] 08/03/2024 16:04:15 COVID-19, mRNA, LNP-S, PF, 30 mcg/0.3 mL dose 1 completed [facility] 08/[facility] 16:04:15 COVID-19, mRNA, LNP-S, PF, 30 mcg/0.3 mL dose 1 completed [facility] 08/03/2024 16:04:15 COVID-19, mRNA, LNP-S, PF, 30 mcg/0.3 mL dose 1 completed [facility] 08/03/2024 16:04:15 COVID-19, mRNA, LNP-S, bivalent, PF, 30 mcg/0.3 mL dose 2 completed [facility] 08/03/2024 16:04:15 influenza, unspecified formulation 8 completed [facility] 08/03/2024 16:04:15 Tdap 2 completed [facility] 08/03/2024 16:04:15 Tdap 7 completed [facility] 08/03/2024 16:04:15 Influenza, split virus, quadrivalent, PF 9 completed [facility] 08/03/2024 16:04:15 Influenza, split virus, quadrivalent, PF 4 completed [facility] 08/03/2024 16:04:15 Influenza, split virus, quadrivalent, PF 1 completed [facility] 08/03/2024 16:04:15 Influenza, split virus, quadrivalent, PF 2 completed Marianela whaley, [facility] 08/03/2024 16:04:15 Influenza, split virus, quadrivalent, PF 0 completed Marianela Klinemyla judd, [facility] 08/03/2024 16:04:15 Past Encounters Encounter ID Performer Location Encounter Start Date Encounter Closed Date Diagnosis/Indication Diagnosis SNOMED-CT Code Diagnosis ICD10 Code Diagnosis Note [id number] Jignesh Keller MD [facility] [address] [place] [address] 03/22/2020 15:41:54 03/22/2020 17:55:33 Kidney stone 24764146 N20.0 [id number] Nathaniel Krause MD [facility] [address] [address] 08/03/2024 15:55:53 08/06/2024 15:41:35 Hydronephrosis due to calculus of kidney and ureter 487492206 N13.2 Jason hematuria 49185130 5 R31.0 Kidney stone 24303575 N2 0.0 [id number] Nathaniel Krause MD [facility] [address] [place] [address] 10/12/2024 15:29:25 10/15/2024 14:58:42 Kidney stone 37515977 N20.0 Health Concerns Section Related Observation LastModified by Organization Detai ls LastModified Time None Recorded Concern Status LastModified by Organization Details LastModified Time None Recorded Advance Directives Directive None Recorded Payers Insurance Date Sequence Insurance Name Policy Number Policy Lindsey Covered Member ID Lindsey Member ID Guarantor Name 08/05/2024 1 [employer] [id number] Rafa Meehan [id number] 1 Rafa Meehan 10/11/2024 1 [employer] [id number] Rafa Meehan [id number] Rafa Meehan Notes Date Note Type Note Provider Name and Address Organization Details Recorded Time 03/22/2020 text/html 39 YOM HERE FOR left flank pain . CT DONE ON 03/18/20 - 6MM LEFT PROXIMAL STONE. OVERALL PAIN IMPROVED. FIRST EPISODE. KUB STONE MORE LIKE 5MM LOCATED IN LEFT KIDNEY. Jignesh Keller MD [address] [facility],[address], [place], [address], [facility] 03/22/2020 16:46:42 08/03/2024 text/html 44M new consult for intermittent high left flank pain. Had CT in Feb 2024 ([facility]) that showed 6mm left UPJ stone with hydro, was given Flomax/MET - pain resolved. Has been returning intermittently in last month, prompting re-eval in Jun 2024. Saw GH at that time briefly. No pain today. Denies dysuria, hematuria or pain today. Was seen back in 2019 for 5mm stone further down ureter - RU saw him - discussed ESWL - we're both suspicious that one passed. Nathaniel Krause MD [address] [place] [address],[address], [place], [address], [facility] 08/03/2024 16:40:41 10/12/2024 text/html 44M presents for left ureteral stone follow up. He is s/p left ureteral stent for impaction (distal left ureter), followed by completion left URS/LL/BE/stent Aug 2024. Presents one month for stent removal - extended dwell time recommended for the impaction. Had CT in Feb 2024 ([place]) that showed 6mm left UPJ stone with hydro, was given Flomax/MET - pain resolved. Has been returning intermittently in last month, prompting re-eval in Jun 2024. Saw GH at that time briefly. Was seen back in 2019 for 5mm stone further down ureter - RU saw him - discussed ESWL - we're both suspicious that one passed. Nathaniel Krause MD [address] [place] [address],[address], [place], [address], [facility] 10/12/2024 16:59:03
== END 2024-12-24 14:50 | disposition home or self-care (01) ==
LOC: US 14:50
PROVIDERS: PCP Family Medicine; Visit Provider Urology
DX: N20.0 Calculus of kidney (principal)
CPT/HCPCS: 76770